=== PATIENT | female | born 1955 | race Caucasian/White ===

== ENCOUNTER 2017-04-03 02:48 | Emergency (ER) | payer MEDICARE, MEDICAID ==
[~2017-04-03] VITALS: Ht 157.5 cm; Wt 52.4 kg
[~2017-04-03 02:48] MED LIST: ALB0.5UD IH; AMIT-189 PO; BOSE125T PO; CLON1TAB4; DEXL60CA3 PO; DIAZ5TAB PO; LIDO700A22 TP; METH4TAB3 PO; METO5TAB85 PO; MONT10TA21 PO; MORP100T21 PO; PER10325T PO; TIOT18CA7 IH; TRIA15CR61 TP
[2017-04-03] MEDS ORDERED: CefTRIAXone 2gm/NS 100ml IVPB 100 ML IV ONE (03:05)
[2017-04-03] MEDS ORDERED: azithromycin/NS 500mg/250ml 250 ML IV ONE (03:05)
[2017-04-03] MEDS ORDERED: albuterol 2.5 MG/3 ML nebule NEB ONE (03:05)
[2017-04-03] MEDS ORDERED: methylPREDNISolone sod succ 125mg/2ml vial IV ONE (03:05)
[2017-04-03 03:28] LABS: BASOPHILS % (AUTO) 0.7 % (0-1); EOSINOPHILS # (AUTO) 0.1 X10'3 (0-0.9); EOSINOPHILS % (AUTO) 1.3 % (0-6); HEMATOCRIT 35.3 % (35.0-45.0); HEMOGLOBIN 12.1 g/dl (12.0-16.0); LYMPHOCYTES # (AUTO) 1.3 X10'3 (1.1-4.8); LYMPHOCYTES % (AUTO) 22.4 % (21-51); MEAN CORPUSCULAR HEMOGLOBIN 32.4 PG (27.0-31.0); MEAN CORPUSCULAR HGB CONC 34.1 % (33.0-36.5); MEAN PLATELET VOLUME 5.9 FL (7.4-10.4); MONOCYTES # (AUTO) 0.7 X10'3 (0-0.9); MONOCYTES % (AUTO) 11.2 % (2-12); NEUTROPHILS # (AUTO) 3.8 X10'3 (1.8-7.7); NEUTROPHILS % (AUTO) 64.4 % (42-75); PLATELET COUNT 207 X10'3 (140-440); RED BLOOD COUNT 3.72 X10'6 (4.20-5.60); RED CELL DISTRIBUTION WIDTH 16.8 % (11.5-14.5); WHITE BLOOD COUNT 5.9 X10'3 (4.5-11.0)
[2017-04-03 03:56] LABS: ALANINE AMINOTRANSFERASE 16 U/L (12-78); ALBUMIN 3.4 G/DL (3.4-5.0); ALBUMIN/GLOBULIN RATIO 0.9 (1.1-1.5); ANION GAP 8 (8-16); ASPARTATE AMINO TRANSFERASE 17 U/L (10-37); BILIRUBIN,TOTAL 0.2 MG/DL (0.1-1.0); BLOOD UREA NITROGEN 5 MG/DL (7-18); BUN/CREATININE RATIO 7.1 (6.6-38.0); CALCIUM 7.8 MG/DL (8.5-10.1); CHLORIDE 102 MMOL/L (99-107); GLUCOSE 102 MG/DL (70-104); MAGNESIUM 1.8 MG/DL (1.5-2.4); PHOSPHORUS 2.9 MG/DL (2.3-4.5); SODIUM 138 MMOL/L (135-145); TOTAL CARBON DIOXIDE 28.4 MMOL/L (24-32); TOTAL PROTEIN 7.4 G/DL (6.4-8.2); eGFR 85 ML/MIN
[2017-04-03 03:59] LABS: ALKALINE PHOSPHATASE 83 IU/L (46-116)
[2017-04-03] MEDS ORDERED: PRED20TA PO (04:54)
[2017-04-03] MEDS ORDERED: AZIT-63 PO (04:54)
[2017-04-03] MEDS ORDERED: GUAI473S11 PO (04:54)
[2017-04-03 05:11] VITALS: BP 99/68
== END 2017-04-03 05:14 | disposition home or self-care (01) ==
LOC: ER 02:48
DX: J44.1 Chronic obstructive pulmonary disease with (acute) exacerbation (principal); J20.9 Acute bronchitis, unspecified; R19.7 Diarrhea, unspecified; E05.90 Thyrotoxicosis, unspecified without thyrotoxic crisis or storm; G89.29 Other chronic pain; K21.9 Gastro-esophageal reflux disease without esophagitis; I27.20 Pulmonary hypertension, unspecified; I10 Essential (primary) hypertension; F41.9 Anxiety disorder, unspecified; M54.9 Dorsalgia, unspecified; F17.210 Nicotine dependence, cigarettes, uncomplicated; Z86.73 Personal history of transient ischemic attack (TIA), and cerebral infarction without residual deficits; Z90.710 Acquired absence of both cervix and uterus; Z98.890 Other specified postprocedural states; Z86.19 Personal history of other infectious and parasitic diseases; Z88.2 Allergy status to sulfonamides; Z88.8 Allergy status to other drugs, medicaments and biological substances
CPT/HCPCS: 36415; 71045; 80053; 83605; 83735; 83880; 84100; 84484; 85025; 87040; 87502; 87503; 93005; 94640; 94760; 96365; 96368; 96375; 99285; J0456; J0696; J2930; 96367

== ENCOUNTER 2017-04-10 15:18 | Emergency (ER) | payer MEDICARE, MEDICAID ==
[~2017-04-10] VITALS: Ht 157.5 cm; Wt 51.0 kg
[~2017-04-10 15:18] MED LIST changes: +AZIT-63 PO; +GUAI473S11 PO; +PRED20TA PO
[2017-04-10] MEDS ORDERED: methylPREDNISolone sod succ 125mg/2ml vial IV ONE (15:30)
[2017-04-10] MEDS ORDERED: ipratropium/albuterol 3ml nebule NEB ONE (15:30)
[2017-04-10 15:59] LABS: BASOPHILS % (AUTO) 0.7 % (0-1); EOSINOPHILS # (AUTO) 0.1 X10'3 (0-0.9); EOSINOPHILS % (AUTO) 1.5 % (0-6); HEMOGLOBIN 12.7 g/dl (12.0-16.0); LYMPHOCYTES # (AUTO) 2.1 X10'3 (1.1-4.8); LYMPHOCYTES % (AUTO) 35.3 % (21-51); MEAN CORPUSCULAR HEMOGLOBIN 33.1 PG (27.0-31.0); MEAN CORPUSCULAR HGB CONC 34.3 % (33.0-36.5); MEAN CORPUSCULAR VOLUME 96.3 FL (78-98); MEAN PLATELET VOLUME 5.6 FL (7.4-10.4); MONOCYTES # (AUTO) 0.5 X10'3 (0-0.9); MONOCYTES % (AUTO) 8.9 % (2-12); NEUTROPHILS # (AUTO) 3.2 X10'3 (1.8-7.7); NEUTROPHILS % (AUTO) 53.6 % (42-75); PLATELET COUNT 300 X10'3 (140-440); RED BLOOD COUNT 3.84 X10'6 (4.20-5.60); RED CELL DISTRIBUTION WIDTH 16.7 % (11.5-14.5)
[2017-04-10 16:24] LABS: ALANINE AMINOTRANSFERASE 23 U/L (12-78); ALBUMIN 3.4 G/DL (3.4-5.0); ALBUMIN/GLOBULIN RATIO 0.9 (1.1-1.5); ALKALINE PHOSPHATASE 82 IU/L (46-116); ANION GAP 7 (8-16); ASPARTATE AMINO TRANSFERASE 23 U/L (10-37); BILIRUBIN,TOTAL 0.2 MG/DL (0.1-1.0); BLOOD UREA NITROGEN 5 MG/DL (7-18); BUN/CREATININE RATIO 7.1 (6.6-38.0); CALCIUM 7.1 MG/DL (8.5-10.1); CHLORIDE 105 MMOL/L (99-107); GLUCOSE 152 MG/DL (70-104); POTASSIUM 4.2 MMOL/L (3.5-5.1); SODIUM 141 MMOL/L (135-145); TOTAL CARBON DIOXIDE 29.5 MMOL/L (24-32); TOTAL PROTEIN 7.3 G/DL (6.4-8.2); eGFR 85 ML/MIN
[2017-04-10] MEDS ORDERED: DOXY-200 PO (16:52)
[2017-04-10] MEDS ORDERED: PRED10TA PO (16:52)
[2017-04-10 17:08] VITALS: BP 104/69
== END 2017-04-10 17:09 | disposition home or self-care (01) ==
LOC: ER 15:19
DX: J44.1 Chronic obstructive pulmonary disease with (acute) exacerbation (principal); I10 Essential (primary) hypertension; I27.20 Pulmonary hypertension, unspecified; K21.9 Gastro-esophageal reflux disease without esophagitis; E05.90 Thyrotoxicosis, unspecified without thyrotoxic crisis or storm; F17.200 Nicotine dependence, unspecified, uncomplicated; G89.29 Other chronic pain; Z86.73 Personal history of transient ischemic attack (TIA), and cerebral infarction without residual deficits; Z98.890 Other specified postprocedural states; Z88.2 Allergy status to sulfonamides; Z88.8 Allergy status to other drugs, medicaments and biological substances; Z79.899 Other long term (current) drug therapy
CPT/HCPCS: 36415; 71045; 80053; 83880; 84484; 85025; 87502; 87503; 93005; 94640; 94760; 96374; 99285; J2930

== ENCOUNTER 2017-06-10 10:11 | Emergency (ER) | payer MEDICARE, MEDICAID ==
[~2017-06-10] VITALS: Ht 149.9 cm; Wt 53.0 kg
[~2017-06-10 10:11] MED LIST changes: -AMIT-189 PO; -AZIT-63 PO; -DIAZ5TAB PO; -GUAI473S11 PO; -LIDO700A22 TP; -METH4TAB3 PO; +PRED10TA PO; -PRED20TA PO; -TRIA15CR61 TP
[2017-06-10 10:49] VITALS: BP 86/59
[2017-06-10 11:14] LABS: BASOPHILS % (AUTO) 0.3 % (0-1); EOSINOPHILS # (AUTO) 0.1 X10'3 (0-0.9); HEMATOCRIT 39.8 % (35.0-45.0); HEMOGLOBIN 13.6 g/dl (12.0-16.0); LYMPHOCYTES # (AUTO) 1.9 X10'3 (1.1-4.8); LYMPHOCYTES % (AUTO) 12.8 % (21-51); MEAN CORPUSCULAR HEMOGLOBIN 32.3 PG (27.0-31.0); MEAN CORPUSCULAR HGB CONC 34.2 % (33.0-36.5); MEAN CORPUSCULAR VOLUME 94.5 FL (78-98); MONOCYTES # (AUTO) 0.8 X10'3 (0-0.9); MONOCYTES % (AUTO) 5.7 % (2-12); NEUTROPHILS # (AUTO) 11.7 X10'3 (1.8-7.7); NEUTROPHILS % (AUTO) 80.2 % (42-75); PLATELET COUNT 222 X10'3 (140-440); RED BLOOD COUNT 4.21 X10'6 (4.20-5.60); WHITE BLOOD COUNT 14.6 X10'3 (4.5-11.0)
[2017-06-10 11:25] LABS: PARTIAL THROMBOPLASTIN TIME 27 SECONDS (22-32)
[2017-06-10 11:32] LABS: ALANINE AMINOTRANSFERASE 18 U/L (12-78); ALBUMIN 3.6 G/DL (3.4-5.0); ALBUMIN/GLOBULIN RATIO 0.8 (1.1-1.5); ALKALINE PHOSPHATASE 60 IU/L (46-116); ANION GAP 8 (8-16); ASPARTATE AMINO TRANSFERASE 17 U/L (10-37); BILIRUBIN,TOTAL 0.5 MG/DL (0.1-1.0); BLOOD UREA NITROGEN 10 MG/DL (7-18); BUN/CREATININE RATIO 13.2 (6.6-38.0); CALCIUM 8.1 MG/DL (8.5-10.1); CHLORIDE 99 MMOL/L (99-107); CREATININE 0.76 MG/DL (0.40-0.90); GLUCOSE 150 MG/DL (70-104); POTASSIUM 4.6 MMOL/L (3.5-5.1); SODIUM 135 MMOL/L (135-145); TOTAL CARBON DIOXIDE 27.6 MMOL/L (24-32); TOTAL PROTEIN 8.1 G/DL (6.4-8.2); eGFR 77 ML/MIN
[2017-06-10] MEDS ORDERED: LEVO500T89 PO (12:36)
[2017-06-10] MEDS ORDERED: GUAI600T45 PO (12:36)
[2017-06-10] MEDS ORDERED: PRED10TA PO (12:36)
== END 2017-06-10 12:54 | disposition home or self-care (01) ==
LOC: ER 10:12
DX: J44.1 Chronic obstructive pulmonary disease with (acute) exacerbation (principal); J20.9 Acute bronchitis, unspecified; J98.4 Other disorders of lung; I10 Essential (primary) hypertension; K21.9 Gastro-esophageal reflux disease without esophagitis; I27.20 Pulmonary hypertension, unspecified; G89.29 Other chronic pain; E05.90 Thyrotoxicosis, unspecified without thyrotoxic crisis or storm; Z90.710 Acquired absence of both cervix and uterus; Z87.891 Personal history of nicotine dependence; Z99.81 Dependence on supplemental oxygen; Z86.73 Personal history of transient ischemic attack (TIA), and cerebral infarction without residual deficits; Z88.2 Allergy status to sulfonamides; Z98.890 Other specified postprocedural states; Z88.6 Allergy status to analgesic agent; Z79.899 Other long term (current) drug therapy
CPT/HCPCS: 36415; 71045; 80053; 84484; 85025; 85610; 85730; 93005; 99285

== ENCOUNTER 2017-06-24 00:41 | Emergency (ER) | payer MEDICARE, MEDICAID ==
[~2017-06-24] VITALS: Ht 157.5 cm; Wt 52.2 kg
[~2017-06-24 00:41] MED LIST changes: +GUAI600T45 PO
[2017-06-24 00:44] VITALS: BP 122/80
[2017-06-24] MEDS ORDERED: ipratropium/albuterol 3ml nebule NEB ONE (01:05)
[2017-06-24] MEDS ORDERED: dexamethasone 4mg tablet PO ONE (01:05)
== END 2017-06-24 02:10 | disposition home or self-care (01) ==
LOC: ER 00:42
DX: J44.1 Chronic obstructive pulmonary disease with (acute) exacerbation (principal); F17.210 Nicotine dependence, cigarettes, uncomplicated; I10 Essential (primary) hypertension; K21.9 Gastro-esophageal reflux disease without esophagitis; I27.20 Pulmonary hypertension, unspecified; E05.90 Thyrotoxicosis, unspecified without thyrotoxic crisis or storm; G89.29 Other chronic pain; Z88.8 Allergy status to other drugs, medicaments and biological substances; Z79.899 Other long term (current) drug therapy; Z98.890 Other specified postprocedural states
CPT/HCPCS: 71046; 94640; 94760; 99284; J8540; 93005

== ENCOUNTER 2017-11-20 07:17 | Emergency (ER) | payer MEDICARE, MEDICAID ==
[~2017-11-20] VITALS: Ht 502.6 cm; Wt 54.5 kg
[~2017-11-20 07:17] MED LIST changes: +CLON-370; -CLON1TAB4
[2017-11-20] MEDS ORDERED: morphine 10mg/ml inj. IM ONE (07:45)
[2017-11-20] MEDS ORDERED: diazepam 5mg tablet PO ONE (07:45)
[2017-11-20] MEDS ORDERED: ondansetron 4mg rapidly disintigrating tab PO ONE (07:45)
[2017-11-20 09:35] VITALS: BP 105/72
== END 2017-11-20 09:36 | disposition home or self-care (01) ==
LOC: ER 07:17
DX: M54.5 Low back pain (principal); G89.29 Other chronic pain; I10 Essential (primary) hypertension; J44.9 Chronic obstructive pulmonary disease, unspecified; I27.20 Pulmonary hypertension, unspecified; K21.9 Gastro-esophageal reflux disease without esophagitis; Z86.19 Personal history of other infectious and parasitic diseases; Z90.710 Acquired absence of both cervix and uterus; Z98.890 Other specified postprocedural states; Z88.6 Allergy status to analgesic agent; Z88.2 Allergy status to sulfonamides; Z88.8 Allergy status to other drugs, medicaments and biological substances; Z79.899 Other long term (current) drug therapy
CPT/HCPCS: 96372; 99284; J2270

== ENCOUNTER 2017-11-24 11:06 | Emergency (ER) | payer MEDICARE, MEDICAID ==
[~2017-11-24] VITALS: Ht 162.6 cm; Wt 54.5 kg
[2017-11-24] MEDS ORDERED: clonazePAM 1mg tablet PO ONE (11:25)
[2017-11-24] MEDS ORDERED: GABA-532 PO (12:16)
[2017-11-24 12:53] VITALS: BP 137/81
== END 2017-11-24 12:55 | disposition home or self-care (01) ==
LOC: ER 11:06
DX: F41.9 Anxiety disorder, unspecified (principal); F13.239 Sedative, hypnotic or anxiolytic dependence with withdrawal, unspecified; I10 Essential (primary) hypertension; J44.9 Chronic obstructive pulmonary disease, unspecified; I27.20 Pulmonary hypertension, unspecified; K21.9 Gastro-esophageal reflux disease without esophagitis; G89.29 Other chronic pain; Z86.73 Personal history of transient ischemic attack (TIA), and cerebral infarction without residual deficits; Z86.19 Personal history of other infectious and parasitic diseases; Z90.710 Acquired absence of both cervix and uterus; Z98.890 Other specified postprocedural states; Z88.6 Allergy status to analgesic agent; Z88.2 Allergy status to sulfonamides; Z88.8 Allergy status to other drugs, medicaments and biological substances; Z79.899 Other long term (current) drug therapy
CPT/HCPCS: 93005; 99284

== ENCOUNTER 2017-12-14 02:47 | Emergency (ER) | payer MEDICARE, MEDICAID ==
[~2017-12-14] VITALS: Ht 162.6 cm; Wt 54.5 kg
[~2017-12-14 02:47] MED LIST changes: +GABA-532 PO
[2017-12-14] MEDS ORDERED: clonazePAM 1mg tablet PO ONE (03:30)
[2017-12-14 03:55] VITALS: BP 112/77
== END 2017-12-14 03:58 | disposition home or self-care (01) ==
LOC: ER 02:48
DX: F41.9 Anxiety disorder, unspecified (principal); G89.29 Other chronic pain; I10 Essential (primary) hypertension; J44.9 Chronic obstructive pulmonary disease, unspecified; K21.9 Gastro-esophageal reflux disease without esophagitis; E03.9 Hypothyroidism, unspecified; Z86.73 Personal history of transient ischemic attack (TIA), and cerebral infarction without residual deficits; Z90.710 Acquired absence of both cervix and uterus; Z88.6 Allergy status to analgesic agent; Z88.2 Allergy status to sulfonamides; Z88.8 Allergy status to other drugs, medicaments and biological substances; Z79.899 Other long term (current) drug therapy
CPT/HCPCS: 99284

== ENCOUNTER 2017-12-17 07:13 | Emergency (ER) | payer MEDICARE, MEDICAID ==
[~2017-12-17] VITALS: Ht 162.6 cm; Wt 54.5 kg
[2017-12-17] MEDS ORDERED: clonazePAM 1mg tablet PO ONE (07:35)
[2017-12-17 07:55] VITALS: BP 112/65
== END 2017-12-17 07:57 | disposition home or self-care (01) ==
LOC: ER 07:14
DX: F41.9 Anxiety disorder, unspecified (principal); I10 Essential (primary) hypertension; K21.9 Gastro-esophageal reflux disease without esophagitis; E05.90 Thyrotoxicosis, unspecified without thyrotoxic crisis or storm; G89.29 Other chronic pain; J44.9 Chronic obstructive pulmonary disease, unspecified; Z86.73 Personal history of transient ischemic attack (TIA), and cerebral infarction without residual deficits; Z90.710 Acquired absence of both cervix and uterus; Z98.890 Other specified postprocedural states; Z88.6 Allergy status to analgesic agent; Z88.8 Allergy status to other drugs, medicaments and biological substances; Z88.2 Allergy status to sulfonamides; Z79.899 Other long term (current) drug therapy
CPT/HCPCS: 99284

== ENCOUNTER 2017-12-28 21:04 | Emergency (ER) | payer MEDICARE, MEDICAID ==
[~2017-12-28] VITALS: Ht 162.6 cm; Wt 54.5 kg
[2017-12-28 21:11] VITALS: BP 81/56
[2017-12-28] MEDS ORDERED: orphenadrine citrate 60mg/2ml inj. IM ONE (23:00)
[2017-12-28] MEDS ORDERED: morphine 4 MG/ML inj SYRINge IM ONE (23:00)
[2017-12-28] MEDS ORDERED: acetaminophen 325mg tablet PO ONE (23:00)
[2017-12-28] MEDS ORDERED: LIDOcaine 5% patch TP ONE (23:00)
[2017-12-28] MEDS ORDERED: BUPIVAcaine/PF 2.5 mg/ml (0.25%) 30ml vial IJ ONE (23:00)
[2017-12-28] MEDS ORDERED: BUPIVAcaine/PF 2.5mg/ml (0.25%) 10ml vial IJ SCH (23:20)
[2017-12-28] MEDS ORDERED: HYDR-3965 PO (23:30)
== END 2017-12-28 23:51 | disposition home or self-care (01) ==
LOC: ER 21:04
DX: G89.29 Other chronic pain (principal); M54.9 Dorsalgia, unspecified; I10 Essential (primary) hypertension; J44.9 Chronic obstructive pulmonary disease, unspecified; I27.20 Pulmonary hypertension, unspecified; K21.9 Gastro-esophageal reflux disease without esophagitis; Z90.710 Acquired absence of both cervix and uterus; Z98.890 Other specified postprocedural states; Z88.2 Allergy status to sulfonamides; Z88.8 Allergy status to other drugs, medicaments and biological substances; Z79.899 Other long term (current) drug therapy
CPT/HCPCS: 96372; 99284; J2270; J2360; J3490

== ENCOUNTER 2018-01-02 11:25 | Emergency (ER) | payer MEDICARE, MEDICAID ==
[~2018-01-02] VITALS: Ht 162.6 cm; Wt 47.0 kg
[~2018-01-02 11:25] MED LIST changes: +HYDR-3965 PO
[2018-01-02 11:40] VITALS: BP 124/81
[2018-01-02] MEDS ORDERED: clonazePAM 1mg tablet PO ONE (13:30)
== END 2018-01-02 14:05 | disposition home or self-care (01) ==
LOC: ER 11:26
DX: F41.9 Anxiety disorder, unspecified (principal); I10 Essential (primary) hypertension; J44.9 Chronic obstructive pulmonary disease, unspecified; K21.9 Gastro-esophageal reflux disease without esophagitis; G89.29 Other chronic pain; E05.90 Thyrotoxicosis, unspecified without thyrotoxic crisis or storm; Z90.710 Acquired absence of both cervix and uterus; Z98.890 Other specified postprocedural states; Z86.73 Personal history of transient ischemic attack (TIA), and cerebral infarction without residual deficits; Z88.6 Allergy status to analgesic agent; Z88.8 Allergy status to other drugs, medicaments and biological substances; Z88.2 Allergy status to sulfonamides; Z79.899 Other long term (current) drug therapy
CPT/HCPCS: 99284

== ENCOUNTER 2018-01-12 09:38 | Emergency (ER) | payer MEDICARE, MEDICAID ==
[~2018-01-12] VITALS: Ht 162.6 cm; Wt 46.3 kg
[2018-01-12 09:43] VITALS: BP 127/88
[2018-01-12] MEDS ORDERED: clonazePAM 1mg tablet PO ONE (10:05)
== END 2018-01-12 10:20 | disposition home or self-care (01) ==
LOC: ER 09:38
DX: F41.9 Anxiety disorder, unspecified (principal); R06.02 Shortness of breath; I10 Essential (primary) hypertension; J44.9 Chronic obstructive pulmonary disease, unspecified; K21.9 Gastro-esophageal reflux disease without esophagitis; G89.29 Other chronic pain; E05.90 Thyrotoxicosis, unspecified without thyrotoxic crisis or storm; Z88.6 Allergy status to analgesic agent; Z88.2 Allergy status to sulfonamides; Z88.8 Allergy status to other drugs, medicaments and biological substances; Z79.899 Other long term (current) drug therapy; Z86.73 Personal history of transient ischemic attack (TIA), and cerebral infarction without residual deficits; Z86.718 Personal history of other venous thrombosis and embolism; Z90.49 Acquired absence of other specified parts of digestive tract; Z90.710 Acquired absence of both cervix and uterus
CPT/HCPCS: 99284

== ENCOUNTER 2018-01-15 10:24 | Emergency (ER) | payer MEDICARE, MEDICAID ==
[~2018-01-15] VITALS: Ht 162.6 cm; Wt 57.0 kg
[2018-01-15 10:25] VITALS: BP 128/92
[2018-01-15] MEDS ORDERED: clonazePAM 1mg tablet PO ONE (11:25)
== END 2018-01-15 11:36 | disposition home or self-care (01) ==
LOC: ER 10:24
DX: F41.9 Anxiety disorder, unspecified (principal); I10 Essential (primary) hypertension; J44.9 Chronic obstructive pulmonary disease, unspecified; K21.9 Gastro-esophageal reflux disease without esophagitis; E05.90 Thyrotoxicosis, unspecified without thyrotoxic crisis or storm; I27.20 Pulmonary hypertension, unspecified; G89.29 Other chronic pain; Z88.6 Allergy status to analgesic agent; Z88.8 Allergy status to other drugs, medicaments and biological substances; Z88.2 Allergy status to sulfonamides; Z79.899 Other long term (current) drug therapy; Z86.73 Personal history of transient ischemic attack (TIA), and cerebral infarction without residual deficits; Z86.718 Personal history of other venous thrombosis and embolism; Z90.710 Acquired absence of both cervix and uterus; Z98.890 Other specified postprocedural states
CPT/HCPCS: 99284

== ENCOUNTER 2018-01-21 16:18 | Emergency (ER) | payer MEDICARE, MEDICAID ==
[~2018-01-21] VITALS: Ht 162.6 cm; Wt 57.3 kg
[2018-01-21] MEDS ORDERED: clonazePAM 1mg tablet PO ONE (18:30)
[2018-01-21 18:41] VITALS: BP 135/86
== END 2018-01-21 18:42 | disposition home or self-care (01) ==
LOC: ER 16:19
DX: F41.9 Anxiety disorder, unspecified (principal); I10 Essential (primary) hypertension; J44.9 Chronic obstructive pulmonary disease, unspecified; I27.20 Pulmonary hypertension, unspecified; K21.9 Gastro-esophageal reflux disease without esophagitis; B19.20 Unspecified viral hepatitis C without hepatic coma; E05.90 Thyrotoxicosis, unspecified without thyrotoxic crisis or storm; G89.29 Other chronic pain; Z90.710 Acquired absence of both cervix and uterus; Z98.890 Other specified postprocedural states; Z88.2 Allergy status to sulfonamides; Z88.8 Allergy status to other drugs, medicaments and biological substances; Z79.899 Other long term (current) drug therapy; Z86.73 Personal history of transient ischemic attack (TIA), and cerebral infarction without residual deficits
CPT/HCPCS: 99284

== ENCOUNTER 2018-02-06 19:04 | Emergency (ER) | payer MEDICARE, MEDICAID ==
[~2018-02-06] VITALS: Ht 162.6 cm; Wt 58.4 kg
[~2018-02-06 19:04] MED LIST changes: -HYDR-3965 PO
[2018-02-06] MEDS ORDERED: clonazePAM 1mg tablet PO ONE (21:00)
[2018-02-06 21:13] VITALS: BP 122/83
== END 2018-02-06 21:15 | disposition home or self-care (01) ==
LOC: ER 19:05
DX: F41.0 Panic disorder [episodic paroxysmal anxiety] (principal); I10 Essential (primary) hypertension; J44.9 Chronic obstructive pulmonary disease, unspecified; K21.9 Gastro-esophageal reflux disease without esophagitis; G89.29 Other chronic pain; E05.90 Thyrotoxicosis, unspecified without thyrotoxic crisis or storm; Z86.73 Personal history of transient ischemic attack (TIA), and cerebral infarction without residual deficits; Z90.710 Acquired absence of both cervix and uterus; Z98.890 Other specified postprocedural states; Z88.6 Allergy status to analgesic agent; Z88.8 Allergy status to other drugs, medicaments and biological substances; Z88.2 Allergy status to sulfonamides; Z79.899 Other long term (current) drug therapy
CPT/HCPCS: 99284

== ENCOUNTER 2018-02-19 15:17 | Emergency (ER) | payer MEDICARE, MEDICAID ==
[~2018-02-19] VITALS: Ht 162.6 cm; Wt 54.0 kg
[2018-02-19 16:01] VITALS: BP 114/77
[2018-02-19] MEDS ORDERED: clonazePAM 1mg tablet PO ONE (17:45)
== END 2018-02-19 18:04 | disposition home or self-care (01) ==
LOC: ER 15:17
DX: F41.9 Anxiety disorder, unspecified (principal); I10 Essential (primary) hypertension; J44.9 Chronic obstructive pulmonary disease, unspecified; K21.9 Gastro-esophageal reflux disease without esophagitis; E05.90 Thyrotoxicosis, unspecified without thyrotoxic crisis or storm; G89.29 Other chronic pain; Z98.890 Other specified postprocedural states; Z90.710 Acquired absence of both cervix and uterus; Z86.73 Personal history of transient ischemic attack (TIA), and cerebral infarction without residual deficits; Z88.6 Allergy status to analgesic agent; Z88.8 Allergy status to other drugs, medicaments and biological substances; Z88.2 Allergy status to sulfonamides; Z79.899 Other long term (current) drug therapy
CPT/HCPCS: 99284

== ENCOUNTER 2018-03-09 19:39 | Emergency (ER) | payer MEDICARE, MEDICAID ==
[~2018-03-09] VITALS: Ht 162.6 cm; Wt 53.2 kg
[2018-03-09 19:53] VITALS: BP 103/73
[2018-03-09] MEDS ORDERED: meclizine 12.5mg tablet PO ONE (20:40)
[2018-03-09] MEDS ORDERED: ROBDML PO (20:42)
[2018-03-09] MEDS ORDERED: BENZ-16 PO (20:42)
[2018-03-09] MEDS ORDERED: AZIT250T2 PO (20:42)
== END 2018-03-09 21:25 | disposition home or self-care (01) ==
LOC: ER 19:40
DX: J20.9 Acute bronchitis, unspecified (principal); R42 Dizziness and giddiness; J44.9 Chronic obstructive pulmonary disease, unspecified; K21.9 Gastro-esophageal reflux disease without esophagitis; I27.20 Pulmonary hypertension, unspecified; G89.29 Other chronic pain; Z86.73 Personal history of transient ischemic attack (TIA), and cerebral infarction without residual deficits; E05.90 Thyrotoxicosis, unspecified without thyrotoxic crisis or storm; Z90.710 Acquired absence of both cervix and uterus; Z98.890 Other specified postprocedural states; Z88.2 Allergy status to sulfonamides; Z88.8 Allergy status to other drugs, medicaments and biological substances; Z79.899 Other long term (current) drug therapy; Z99.81 Dependence on supplemental oxygen
CPT/HCPCS: 99283; J8597

== ENCOUNTER 2018-05-15 15:14 | Emergency (ER) | payer MEDICARE, MEDICAID ==
[~2018-05-15] VITALS: Ht 162.6 cm; Wt 56.8 kg
[~2018-05-15 15:14] MED LIST changes: +ROBDML PO
--- NOTE | 2018-05-15 16:42 | NUR ---
PATIENT HERE FOR ANXIETY DUE TO CLONOPIN BEING WEANED OFF BY HER PMD: WAS TAKING 1MG BID CLONOPIN LAST DOSE OF CLONOPIN INGESTED WAS 4 DAYS; PT IS NOW OUT OF HER LEFTOVER CLONOPIN; LAST FILLED CLONOPIN "A COUPLE OF MONTHS AGO" PT TAKES MORPHINE CONTIN 30 MG Q 12HOUR PT IS ONLY TAKING HER GABAPENTIN BID INSTEAD OF TID PT TAKES 10 MG FLEXERIL AT BEDTIME PT IS REQUESTING TO BE GIVEN A 1 MG CLONOPIN HERE IN THE ER
--- NOTE | 2018-05-15 16:46 | NUR ---
PATIENT HAS NOT ATTENDED THERAPY/ COUNSELING IN 2 MONTHS
[2018-05-15 16:55] VITALS: BP 120/52
--- NOTE | 2018-05-15 16:57 | NUR ---
PATIENT WAS GIVEN 1 MG CLONOPIN HERE IN THE ER ON MAY 10, 2018 THE LASY SET OF VITALS WAS DOCUMENTED WITH A SMALL ADULT CUFF; TRIAGE BP WAS DONE WITH A REGULAR CUFF; PATIENT IS A SMALL FRAMED WOMAN
== END 2018-05-15 17:10 | disposition home or self-care (01) ==
LOC: ER 15:14
DX: F41.9 Anxiety disorder, unspecified (principal); I10 Essential (primary) hypertension; J44.9 Chronic obstructive pulmonary disease, unspecified; E05.90 Thyrotoxicosis, unspecified without thyrotoxic crisis or storm; G89.29 Other chronic pain; M54.9 Dorsalgia, unspecified; F17.200 Nicotine dependence, unspecified, uncomplicated; Z86.73 Personal history of transient ischemic attack (TIA), and cerebral infarction without residual deficits; Z90.710 Acquired absence of both cervix and uterus; Z88.2 Allergy status to sulfonamides; Z88.8 Allergy status to other drugs, medicaments and biological substances
CPT/HCPCS: 99284

== ENCOUNTER 2018-07-17 16:19 | Emergency (ER) | payer MEDICARE, MEDICAID ==
[~2018-07-17] VITALS: Ht 162.6 cm; Wt 55.0 kg
[2018-07-17 16:38] VITALS: BP 98/62
== END 2018-07-17 17:57 | disposition home or self-care (01) ==
LOC: ER 16:19
DX: M54.5 Low back pain (principal); G89.29 Other chronic pain; M54.6 Pain in thoracic spine; I10 Essential (primary) hypertension; J44.9 Chronic obstructive pulmonary disease, unspecified; K21.9 Gastro-esophageal reflux disease without esophagitis; E05.80 Other thyrotoxicosis without thyrotoxic crisis or storm; F41.9 Anxiety disorder, unspecified; Z86.73 Personal history of transient ischemic attack (TIA), and cerebral infarction without residual deficits; Z90.710 Acquired absence of both cervix and uterus; Z98.890 Other specified postprocedural states; Z88.6 Allergy status to analgesic agent; Z88.8 Allergy status to other drugs, medicaments and biological substances; Z79.899 Other long term (current) drug therapy; Z88.2 Allergy status to sulfonamides
CPT/HCPCS: 99284

== ENCOUNTER 2018-10-19 04:08 | Emergency (ER) | payer MEDICARE, MEDICAID ==
[~2018-10-19] VITALS: Ht 160 cm; Wt 59.1 kg
[2018-10-19 04:10] VITALS: BP 113/70
[2018-10-19] MEDS ORDERED: proparacaine 0.5% ophthalmic drops 15ml EACHEYE ONE (04:10)
[2018-10-19] MEDS ORDERED: VIG0.5OS RIGHTEYE (04:23)
== END 2018-10-19 04:35 | disposition home or self-care (01) ==
LOC: ER 04:09
DX: H10.9 Unspecified conjunctivitis (principal); I10 Essential (primary) hypertension; J44.9 Chronic obstructive pulmonary disease, unspecified; K21.9 Gastro-esophageal reflux disease without esophagitis; E03.9 Hypothyroidism, unspecified; G89.29 Other chronic pain; F17.200 Nicotine dependence, unspecified, uncomplicated; Z86.73 Personal history of transient ischemic attack (TIA), and cerebral infarction without residual deficits; Z86.19 Personal history of other infectious and parasitic diseases; Z90.710 Acquired absence of both cervix and uterus; Z98.890 Other specified postprocedural states; Z88.8 Allergy status to other drugs, medicaments and biological substances; Z88.2 Allergy status to sulfonamides; Z79.899 Other long term (current) drug therapy
CPT/HCPCS: 99283

== ENCOUNTER 2018-12-20 14:43 | Emergency (ER) | payer MEDICARE, MEDICAID ==
[~2018-12-20] VITALS: Ht 152.4 cm; Wt 53.0 kg
[2018-12-20] MEDS ORDERED: clonazePAM 1mg tablet PO ONE (15:05)
[2018-12-20] MEDS ORDERED: ipratropium/albuterol 3ml nebule NEB ONE (15:05)
--- NOTE | 2018-12-20 15:09 | NUR ---
patient to radiology
[2018-12-20 15:21] LABS: BASOPHILS # (AUTO) 0.1 X10'3 (0-0.2); BASOPHILS % (AUTO) 0.7 % (0-1); EOSINOPHILS # (AUTO) 0.1 X10'3 (0-0.9); EOSINOPHILS % (AUTO) 0.9 % (0-6); HEMATOCRIT 41.6 % (35.0-45.0); HEMOGLOBIN 13.8 g/dl (12.0-16.0); LYMPHOCYTES # (AUTO) 2.3 X10'3 (1.1-4.8); LYMPHOCYTES % (AUTO) 32.6 % (21-51); MEAN CORPUSCULAR HEMOGLOBIN 31.3 PG (27.0-31.0); MEAN CORPUSCULAR HGB CONC 33.1 g/dL (33.0-36.5); MEAN CORPUSCULAR VOLUME 94.4 FL (78-98); MEAN PLATELET VOLUME 6.2 FL (7.4-10.4); MONOCYTES # (AUTO) 0.8 X10'3 (0-0.9); MONOCYTES % (AUTO) 10.8 % (2-12); NEUTROPHILS # (AUTO) 3.9 X10'3 (1.8-7.7); PLATELET COUNT 316 X10'3 (140-440); RED BLOOD COUNT 4.41 X10'6 (4.20-5.60); RED CELL DISTRIBUTION WIDTH 17.5 % (11.5-14.5)
[2018-12-20 15:32] LABS: ALANINE AMINOTRANSFERASE 20 U/L (12-78); ALBUMIN 3.7 G/DL (3.4-5.0); ALBUMIN/GLOBULIN RATIO 0.8 (1.1-1.5); ALKALINE PHOSPHATASE 67 IU/L (46-116); ANION GAP 6 (8-16); ASPARTATE AMINO TRANSFERASE 21 U/L (10-37); BILIRUBIN,TOTAL 0.2 MG/DL (0.1-1.0); BLOOD UREA NITROGEN 12 MG/DL (7-18); BUN/CREATININE RATIO 17.4 (6.6-38.0); CALCIUM 9.1 MG/DL (8.5-10.1); CHLORIDE 105 MMOL/L (99-107); CREATININE 0.69 MG/DL (0.40-0.90); GLUCOSE 135 MG/DL (70-104); POTASSIUM 4.1 MMOL/L (3.5-5.1); SODIUM 143 MMOL/L (135-145); TOTAL CARBON DIOXIDE 31.8 MMOL/L (24-32); TOTAL PROTEIN 8.5 G/DL (6.4-8.2); eGFR 85 ML/MIN
[2018-12-20 15:35] LABS: PARTIAL THROMBOPLASTIN TIME 25 SECONDS (22-32)
--- NOTE | 2018-12-20 15:35 | NUR ---
mark at bedside.
--- NOTE | 2018-12-20 15:38 | NUR ---
PATIENT REPORTS "FEELING BETTER" AFTER BREATHING TX.
[2018-12-20] MEDS ORDERED: AZIT-72 PO (15:44)
[2018-12-20] MEDS ORDERED: METH4TAB81 PO (15:44)
[2018-12-20 16:00] VITALS: BP 109/72
== END 2018-12-20 16:09 | disposition home or self-care (01) ==
LOC: ER 14:43
DX: J44.1 Chronic obstructive pulmonary disease with (acute) exacerbation (principal); I10 Essential (primary) hypertension; J44.9 Chronic obstructive pulmonary disease, unspecified; I27.20 Pulmonary hypertension, unspecified; K21.9 Gastro-esophageal reflux disease without esophagitis; E05.90 Thyrotoxicosis, unspecified without thyrotoxic crisis or storm; G89.29 Other chronic pain; F41.9 Anxiety disorder, unspecified; Z90.710 Acquired absence of both cervix and uterus; Z98.890 Other specified postprocedural states; Z88.8 Allergy status to other drugs, medicaments and biological substances; Z88.2 Allergy status to sulfonamides
CPT/HCPCS: 36415; 71046; 80053; 84484; 85025; 85610; 85730; 93005; 94640; 94760; 99284

== ENCOUNTER 2019-02-23 12:12 | Inpatient (IN) | payer MEDICARE, MEDICAID ==
[~2019-02-23] VITALS: Ht 160 cm; Wt 61.0 kg
[~2019-02-23 12:12] MED LIST changes: +METH4TAB81 PO
[2019-02-23] MEDS ORDERED: normal saline 1000ml 1,000 ML IV ONE (12:47)
[2019-02-23] MEDS ORDERED: methylPREDNISolone sod succ 125mg/2ml vial IV ONE (12:50)
[2019-02-23] MEDS ORDERED: azithromycin/NS 500mg/250ml 250 ML IV ONE (12:50)
[2019-02-23] MEDS ORDERED: CefTRIAXone 2gm/D5W 50ml 50 ML IV ONE (12:50)
[2019-02-23 13:29] LABS: BASOPHILS # (AUTO) 0.1 X10'3 (0-0.2); BASOPHILS % (AUTO) 0.7 % (0-1); EOSINOPHILS % (AUTO) 0.2 % (0-6); HEMATOCRIT 37.4 % (35.0-45.0); HEMOGLOBIN 12.3 g/dl (12.0-16.0); LYMPHOCYTES # (AUTO) 1.5 X10'3 (1.1-4.8); LYMPHOCYTES % (AUTO) 19.3 % (21-51); MEAN CORPUSCULAR VOLUME 93.9 FL (78-98); MEAN PLATELET VOLUME 6.3 FL (7.4-10.4); MONOCYTES % (AUTO) 12.4 % (2-12); NEUTROPHILS # (AUTO) 5.4 X10'3 (1.8-7.7); NEUTROPHILS % (AUTO) 67.4 % (42-75); PLATELET COUNT 339 X10'3 (140-440); RED BLOOD COUNT 3.99 X10'6 (4.20-5.60); RED CELL DISTRIBUTION WIDTH 15.8 % (11.5-14.5)
[2019-02-23 13:34] LABS: PARTIAL THROMBOPLASTIN TIME 27 SECONDS (22-32)
[2019-02-23 13:37] LABS: ALANINE AMINOTRANSFERASE 18 U/L (12-78); ALBUMIN 3.1 G/DL (3.4-5.0); ALBUMIN/GLOBULIN RATIO 0.7 (1.1-1.5); ALKALINE PHOSPHATASE 53 IU/L (46-116); ANION GAP 5 (8-16); ASPARTATE AMINO TRANSFERASE 22 U/L (10-37); BILIRUBIN,TOTAL 0.3 MG/DL (0.1-1.0); BLOOD UREA NITROGEN 8 MG/DL (7-18); BUN/CREATININE RATIO 12.1 (6.6-38.0); CALCIUM 8.1 MG/DL (8.5-10.1); CHLORIDE 95 MMOL/L (99-107); CREATININE 0.66 MG/DL (0.40-0.90); GLUCOSE 134 MG/DL (70-104); MAGNESIUM 1.8 MG/DL (1.5-2.4); POTASSIUM 4.2 MMOL/L (3.5-5.1); SODIUM 131 MMOL/L (135-145); TOTAL CARBON DIOXIDE 31.1 MMOL/L (24-32); TOTAL PROTEIN 7.3 G/DL (6.4-8.2); eGFR 90 ML/MIN
[2019-02-23] MEDS ORDERED: albuterol 2.5 MG/3 ML nebule ONE (14:04)
[2019-02-23] MEDS ORDERED: aspirin 81mg tab.chew PO ONE (14:10)
[2019-02-23] MEDS ORDERED: albuterol 2.5 MG/3 ML nebule NEB PRN (14:10)
[2019-02-23] MEDS ORDERED: nitroGLYCERIN 0.2mg/hour patch TD ONE (14:10)
[2019-02-23] MEDS ORDERED: albuterol 2.5 MG/3 ML nebule CONTNEB PRN (14:10)
[2019-02-23] MEDS ORDERED: morphine 2 MG/ML inj. syringe IV PRN ×2 (14:25)
[2019-02-23] MEDS ORDERED: acetaminophen 325mg tablet PO PRN ×2 (14:25)
[2019-02-23] MEDS ORDERED: magnesium hydroxide 30ml (MOM) UD suspension PO PRN (14:25)
[2019-02-23] MEDS ORDERED: magnesium 4gm in 100ml NS 100 ML IV PRN (14:25)
[2019-02-23] MEDS ORDERED: potassium CL 10mEq/100ml bag 100 ML IV PRN ×2 (14:25)
[2019-02-23] MEDS ORDERED: mag hydrox/Alum hydrox/simeth 30ml oral suspension PO PRN (14:25)
[2019-02-23] MEDS ORDERED: magnesium 2GM in 50ml NS 50 ML IV PRN (14:25)
[2019-02-23] MEDS ORDERED: ipratropium/albuterol 3ml nebule NEB PRN (14:25)
[2019-02-23] MEDS ORDERED: potassium Cl 20 mEq SR tablet PO PRN ×2 (14:25)
[2019-02-23] MEDS ORDERED: ondansetron/PF 4mg/2ml inj IV PRN (14:25)
[2019-02-23] MEDS ORDERED: magnesium Cl slow-release 64mg tablet PO PRN (14:25)
[2019-02-23] MEDS ORDERED: enoxaparin 100mg/ml syringe SUBCUT ONE (14:30)
[2019-02-23] MEDS ORDERED: nitroGLYCERIN 0.4mg SUBLingual tab SL PRN (14:40)
[2019-02-23] MEDS ORDERED: TIOT4MIS2 INH (14:51)
[2019-02-23] MEDS ORDERED: [UNRECOGNIZED DRUG - CODE] PO (14:51)
[2019-02-23] MEDS ORDERED: BUPR1TAB36 SL (14:51)
[2019-02-23] MEDS ORDERED: ALBU17AE26 INH (14:51)
[2019-02-23] MEDS ORDERED: LEVO88TA39 PO (14:51)
[2019-02-23] MEDS ORDERED: BUDE10.22 INH (14:51)
[2019-02-23] MEDS ORDERED: LINA145C PO (14:51)
[2019-02-23] MEDS ORDERED: METO10TA3 PO (14:51)
[2019-02-23] MEDS ORDERED: POTA10TA PO (14:51)
[2019-02-23] MEDS ORDERED: MONT10TA24 PO (14:51)
[2019-02-23] MEDS ORDERED: DEXL60CA3 PO (14:51)
[2019-02-23] MEDS: methylPREDNISolone sod succ 125mg/2ml vial IV SCH (15:05)
--- NOTE | 2019-02-23 16:20 | NUR ---
Pt arrived on unit via wheelchair by ARLEEN Khan. Pt on mobile monitor. RT present to initiate CPAP. Pt oriented room and call light. VS: 121/76, HR 94, O2 - 91% 3L NC, RR 14.
[2019-02-23 16:30] VITALS: BP 121/76
--- NOTE | 2019-02-23 17:56 | NUR ---
Orientee documentation: I have reviewed and agree with all interventions, assessments performed and documented by ARLEEN Yee. Student Medication Administration: For this medication-pass time frame, all medication were reviewed, dispensed, administered and documented per hospital policy by ARLEEN Yee.
--- NOTE | 2019-02-23 18:20 | NUR ---
Problems reprioritized. Patient report given, questions answered & plan of care reviewed with ARLEEN Ruffin. Patient stable at transfer of care.
--- NOTE | 2019-02-23 18:21 | NUR ---
Problems reprioritized. Patient report given, questions answered & plan of care reviewed with Kemal Lindo.
[2019-02-23 19:00] VITALS: BP 91/70
[2019-02-23] MEDS: K and/or MAG REPLACEMENT MC SCH (20:00)
[2019-02-23] MEDS: BOSENTAN PO SCH (20:00)
[2019-02-23] MEDS: LINACLOTIDE PO SCH (20:00)
[2019-02-23] MEDS: ipratropium/albuterol 3ml nebule NEB SCH (20:11)
[2019-02-23] MEDS: metoclopramide 10mg tablet PO SCH (21:24)
[2019-02-23 22:38] VITALS: BP 88/64
[2019-02-23] MEDS: buprenorphine/naloxone 8mg/2mg SL tablet SL SCH (23:36)
[2019-02-24] MEDS: methylPREDNISolone sod succ 125mg/2ml vial IV SCH ×2 (01:00→08:34)
[2019-02-24 01:54] LABS: CHLORIDE 102 MMOL/L (99-107); GLUCOSE 103 MG/DL (70-104); POTASSIUM 4.3 MMOL/L (3.5-5.1); SODIUM 138 MMOL/L (135-145); TOTAL CARBON DIOXIDE 32.4 MMOL/L (24-32)
[2019-02-24 01:55] LABS: ALBUMIN 2.8 G/DL (3.4-5.0); ANION GAP 4 (8-16); BLOOD UREA NITROGEN 5 MG/DL (7-18); BUN/CREATININE RATIO 8.6 (6.6-38.0); CALCIUM 7.6 MG/DL (8.5-10.1); CHOL/HDL RATIO 3.1 (0.00-4.99); CHOLESTEROL 173 MG/DL (0-200); CREATININE 0.58 MG/DL (0.40-0.90); HDL CHOLESTEROL 56 MG/DL (35-60); LDL CHOLESTEROL 100 MG/DL (50-100); TRIGLYCERIDES 74 MG/DL (20-135); eGFR > 90 ML/MIN
[2019-02-24 03:00] VITALS: BP 83/54
[2019-02-24 05:34] LABS: BASOPHILS % (AUTO) 0.4 % (0-1); EOSINOPHILS % (AUTO) 0 % (0-6); HEMATOCRIT 34.2 % (35.0-45.0); HEMOGLOBIN 11.5 g/dl (12.0-16.0); LYMPHOCYTES # (AUTO) 0.8 X10'3 (1.1-4.8); LYMPHOCYTES % (AUTO) 22.3 % (21-51); MEAN CORPUSCULAR HEMOGLOBIN 31.1 PG (27.0-31.0); MEAN CORPUSCULAR HGB CONC 33.5 g/dL (33.0-36.5); MEAN CORPUSCULAR VOLUME 92.8 FL (78-98); MEAN PLATELET VOLUME 6.2 FL (7.4-10.4); MONOCYTES # (AUTO) 0.2 X10'3 (0-0.9); MONOCYTES % (AUTO) 6.5 % (2-12); NEUTROPHILS # (AUTO) 2.6 X10'3 (1.8-7.7); NEUTROPHILS % (AUTO) 70.8 % (42-75); PLATELET COUNT 305 X10'3 (140-440); RED BLOOD COUNT 3.69 X10'6 (4.20-5.60); RED CELL DISTRIBUTION WIDTH 16.1 % (11.5-14.5); WHITE BLOOD COUNT 3.7 X10'3 (4.5-11.0)
--- NOTE | 2019-02-24 06:00 | NUR ---
Problems reprioritized. Patient report given, questions answered & plan of care reviewed with Larissa BACON and Nakia BACON .
--- NOTE | 2019-02-24 06:35 | NUR ---
Patient in room PCU 3020. I have received report from ARLEEN Lindo and had the opportunity to ask questions and assume patient care.
--- NOTE | 2019-02-24 06:37 | NUR ---
Patient in room PCU 3020. I have received report from ARLEEN Lindo and had the opportunity to ask questions and assume patient care. Patient asleep in bed and resting comfortably. In no acute distress.
[2019-02-24 07:00] VITALS: BP 90/67
[2019-02-24] MEDS: K and/or MAG REPLACEMENT MC SCH ×2 (07:01→20:00)
[2019-02-24] MEDS: ipratropium/albuterol 3ml nebule NEB SCH ×4 (07:37→20:09)
[2019-02-24] MEDS: LINACLOTIDE PO SCH ×2 (08:00→20:00)
[2019-02-24] MEDS: BOSENTAN PO SCH ×2 (08:00→20:00)
[2019-02-24] MEDS: pantoprazole 40mg Tablet.DR PO SCH (08:33)
[2019-02-24] MEDS: azithromycin 250mg tablet PO SCH (08:33)
[2019-02-24] MEDS: metoclopramide 10mg tablet PO SCH ×4 (08:34→23:17)
[2019-02-24] MEDS: nicotine 21mg patch - 24 hr TD SCH (08:34)
[2019-02-24] MEDS: montelukast 10mg tablet PO SCH (08:34)
[2019-02-24] MEDS: levoTHYROXINE 88mcg tablet PO SCH (08:34)
[2019-02-24] MEDS: potassium chloride 10mEq ER tablet PO SCH (08:34)
[2019-02-24] MEDS: CefTRIAXone 2gm/D5W 50ml 50 ML IV SCH (08:35)
[2019-02-24] MEDS: buprenorphine/naloxone 8mg/2mg SL tablet SL SCH (08:39)
[2019-02-24] MEDS ORDERED: methylPREDNISolone sod succ 125mg/2ml vial IV SCH (08:53)
[2019-02-24] MEDS ORDERED: methylPREDNISolone sod succ/PF 40mg inj. IV SCH (08:53)
[2019-02-24 11:00] VITALS: BP 120/84
--- NOTE | 2019-02-24 12:23 | NUR ---
New orders for from [facility] for PT eval, discontinue solumerol, and to add an order for 40mg prednisone.
[2019-02-24] MEDS: buprenorphine/naloxone 8MG-2MG SUBlingual film SL SCH ×2 (14:59→22:00)
[2019-02-24 15:00] VITALS: BP 102/70
[2019-02-24 18:00] VITALS: BP 86/65
--- NOTE | 2019-02-24 18:06 | NUR ---
Orientee documentation: I have reviewed and agree with all interventions, assessments performed and documented by ARLEEN Yee. Student Medication Administration: For this medication-pass time frame, all medication were reviewed, dispensed, administered and documented per hospital policy by Nakia BACON.
--- NOTE | 2019-02-24 18:21 | NUR ---
Problems reprioritized. Patient report given, questions answered & plan of care reviewed with Belgica BACON. Patient stable at transfer of care.
--- NOTE | 2019-02-24 18:22 | NUR ---
Problems reprioritized. Patient report given, questions answered & plan of care reviewed with ARLEEN Lindo.
[2019-02-24 22:00] VITALS: BP 84/62
[2019-02-25 02:00] VITALS: BP 100/86
[2019-02-25 06:00] VITALS: BP 99/73
--- NOTE | 2019-02-25 06:17 | NUR ---
Patient in room PCU 3020. I have received report from ARLEEN Lindo and had the opportunity to ask questions and assume patient care.
--- NOTE | 2019-02-25 06:41 | NUR ---
Problems reprioritized. Patient report given, questions answered & plan of care reviewed with Teodora BACON.
[2019-02-25 06:52] LABS: BASOPHILS # (AUTO) 0.1 X10'3 (0-0.2); BASOPHILS % (AUTO) 0.8 % (0-1); EOSINOPHILS % (AUTO) 0.5 % (0-6); HEMOGLOBIN 12.2 g/dl (12.0-16.0); LYMPHOCYTES # (AUTO) 2.7 X10'3 (1.1-4.8); LYMPHOCYTES % (AUTO) 33.1 % (21-51); MEAN CORPUSCULAR HEMOGLOBIN 30.5 PG (27.0-31.0); MEAN CORPUSCULAR HGB CONC 32.2 g/dL (33.0-36.5); MEAN CORPUSCULAR VOLUME 94.6 FL (78-98); MEAN PLATELET VOLUME 6.5 FL (7.4-10.4); MONOCYTES # (AUTO) 1.1 X10'3 (0-0.9); MONOCYTES % (AUTO) 13.5 % (2-12); NEUTROPHILS # (AUTO) 4.2 X10'3 (1.8-7.7); NEUTROPHILS % (AUTO) 52.1 % (42-75); PLATELET COUNT 367 X10'3 (140-440); RED BLOOD COUNT 4.02 X10'6 (4.20-5.60); RED CELL DISTRIBUTION WIDTH 16.2 % (11.5-14.5)
[2019-02-25 06:57] LABS: ALBUMIN 2.8 G/DL (3.4-5.0); ANION GAP -2 (8-16); BLOOD UREA NITROGEN 18 MG/DL (7-18); CALCIUM 8.1 MG/DL (8.5-10.1); CHLORIDE 104 MMOL/L (99-107); CREATININE 0.75 MG/DL (0.40-0.90); GLUCOSE 79 MG/DL (70-104); MAGNESIUM 2.2 MG/DL (1.5-2.4); POTASSIUM 4.4 MMOL/L (3.5-5.1); SODIUM 140 MMOL/L (135-145); TOTAL CARBON DIOXIDE 38.4 MMOL/L (24-32); eGFR 78 ML/MIN
[2019-02-25] MEDS: ipratropium/albuterol 3ml nebule NEB SCH ×3 (07:02→14:46)
[2019-02-25] MEDS: azithromycin 250mg tablet PO SCH (07:21)
[2019-02-25] MEDS: buprenorphine/naloxone 8MG-2MG SUBlingual film SL SCH ×2 (07:21→12:23)
[2019-02-25] MEDS: metoclopramide 10mg tablet PO SCH ×3 (07:21→16:48)
[2019-02-25] MEDS: potassium chloride 10mEq ER tablet PO SCH (07:21)
[2019-02-25] MEDS: nicotine 21mg patch - 24 hr TD SCH (07:21)
[2019-02-25] MEDS: levoTHYROXINE 88mcg tablet PO SCH (07:21)
[2019-02-25] MEDS: pantoprazole 40mg Tablet.DR PO SCH (07:22)
[2019-02-25] MEDS: CefTRIAXone 2gm/D5W 50ml 50 ML IV SCH (07:22)
[2019-02-25] MEDS: montelukast 10mg tablet PO SCH (07:23)
[2019-02-25] MEDS: HYDROcodone/acetaminophen 5mg/325mg tablet PO PRN ×2 (07:42→16:48)
[2019-02-25] MEDS: BOSENTAN PO SCH (08:00)
[2019-02-25] MEDS: LINACLOTIDE PO SCH (08:00)
[2019-02-25] MEDS: K and/or MAG REPLACEMENT MC SCH (08:00)
[2019-02-25] MEDS ORDERED: predniSONE 20 mg tablet PO SCH (08:00)
[2019-02-25 10:31] LABS: ABG BASE EXCESS 9.8 mmol/L (-2.0-3.0); ABG HCO3 37.8 mmol/L (22.0-26.0); ABG OXYGEN SATURATION 90.5 % (95-98); ABG PCO2 (T) 67.9 mmHg (35.0-45.0); ABG PH (T) 7.363 (7.350-7.450); ABG PO2 (T) 60.2 mmHg (83-108); ALLEN'S TEST Positive; FCOHb 2.3 % (0.5-1.5); FLOW 5 L/min; FMetHb 0.3 % (0.3-1.12); FO2Hb 88.1 % (94-100); TOTAL HEMOGLOBIN 12.8 G/dl (12.0-16.0)
--- NOTE | 2019-02-25 10:42 | NUR ---
[id number] MESSAGE: Lisa Kiser Rm [id number] has had ABG resulted. Please review for poss d/c home today.
[2019-02-25 11:00] VITALS: BP 81/63
[2019-02-25 15:00] VITALS: BP 85/67
[2019-02-25] MEDS ORDERED: IPRA3AMP9 NEB (16:12)
[2019-02-25] MEDS ORDERED: AZI25OT PO (16:12)
[2019-02-25] MEDS ORDERED: NICO-687 TD (16:12)
--- NOTE | 2019-02-25 16:28 | NUR ---
[id number] MESSAGE: Lisa Kiser Rm [id number] should she go home with prednisone? ARLEEN Hollins ext [phone]
[2019-02-25] MEDS ORDERED: PRED10TA23 PO (16:36)
[2019-02-25] MEDS ORDERED: lactobacillus rhamnosus 10,000 MMU CELLS/CAPSULE PO SCH (20:00)
--- NOTE | 2019-02-26 13:16 | NUR ---
Spoke with the patient on the telephone and have been informed that her medications were not called into the pharmacy upon discharge. Patients meds have been called into [facility] on [address] [facility] in [facility] as requested by patient. Patient has been informed to wait approximately one hour and then call the pharmacy to inquire about the medication status.
== END 2019-02-25 17:44 | disposition home or self-care (01) | DRG 189 ==
LOC: ER 12:12 → ED HOLD 14:38 → PCU 3S 16:20
PROVIDERS: ADMIT Hospitalist; ATTEND Hospitalist
PROC: 5A09357 Assistance with Respiratory Ventilation, Less than 24 Consecutive Hours, Continuous Positive Airway Pressure (ICD-10-PCS; principal; 2019-02-23)
DX: J96.20 Acute and chronic respiratory failure, unspecified whether with hypoxia or hypercapnia (principal); J44.1 Chronic obstructive pulmonary disease with (acute) exacerbation; R64 Cachexia; E03.9 Hypothyroidism, unspecified; F17.210 Nicotine dependence, cigarettes, uncomplicated; I10 Essential (primary) hypertension; I27.20 Pulmonary hypertension, unspecified; K21.9 Gastro-esophageal reflux disease without esophagitis; B19.20 Unspecified viral hepatitis C without hepatic coma; G89.29 Other chronic pain; M54.9 Dorsalgia, unspecified; F41.9 Anxiety disorder, unspecified; Z90.710 Acquired absence of both cervix and uterus; Z87.01 Personal history of pneumonia (recurrent); Z86.73 Personal history of transient ischemic attack (TIA), and cerebral infarction without residual deficits; Z88.8 Allergy status to other drugs, medicaments and biological substances; Z88.2 Allergy status to sulfonamides
CPT/HCPCS: 36415; 36600; 71045; 80048; 80053; 80061; 82803; 83605; 83735; 83880; 84484; 85018; 85025; 85610; 85730; 87040; 87502; 87503; 93005; 93306; 94640; 94660; 94760; 96365; 96368; 96372; 96375; 99291; G0378; J0456; J0696; J1650; J2920; J2930; J7512; J8597

== ENCOUNTER 2019-11-20 21:20 | Inpatient (IN) | payer BC, MEDICAID ==
[~2019-11-20] VITALS: Ht 162.6 cm; Wt 59.1 kg
[~2019-11-20 21:20] MED LIST changes: -ALB0.5UD IH; +ALBU17AE26 INH; -BOSE125T PO; +BUDE10.22 INH; +BUPR1TAB45 SL; -CLON-370; -GABA-532 PO; -GUAI600T45 PO; +LEVO88TA39 PO; +LINA145C PO; -METH4TAB81 PO; +METO10TA3 PO; -METO5TAB85 PO; -MONT10TA21 PO; +MONT10TA26 PO; -MORP100T21 PO; -PER10325T PO; +POTA10TA PO; -PRED10TA PO; -ROBDML PO; -TIOT18CA7 IH; +TIOT4MIS2 INH
[2019-11-20] MEDS ORDERED: ipratropium/albuterol 3ml nebule NEB ONE (21:25)
[2019-11-20] MEDS ORDERED: methylPREDNISolone sod succ 125mg/2ml vial IV ONE (21:25)
[2019-11-20 22:01] LABS: BASOPHILS # (AUTO) 0.1 X10'3 (0-0.2); BASOPHILS % (AUTO) 0.3 % (0-1); EOSINOPHILS % (AUTO) 0.1 % (0-6); HEMATOCRIT 43.3 % (35.0-45.0); HEMOGLOBIN 13.9 g/dl (12.0-16.0); LYMPHOCYTES # (AUTO) 1.3 X10'3 (1.1-4.8); LYMPHOCYTES % (AUTO) 6.9 % (21-51); MEAN CORPUSCULAR HEMOGLOBIN 27.8 PG (27.0-31.0); MEAN CORPUSCULAR HGB CONC 32.1 g/dL (33.0-36.5); MEAN CORPUSCULAR VOLUME 86.6 FL (78-98); MEAN PLATELET VOLUME 6.6 FL (7.4-10.4); MONOCYTES % (AUTO) 5.2 % (2-12); NEUTROPHILS # (AUTO) 16.8 X10'3 (1.8-7.7); NEUTROPHILS % (AUTO) 87.5 % (42-75); PLATELET COUNT 336 X10'3 (140-440); RED CELL DISTRIBUTION WIDTH 19.6 % (11.5-14.5); WHITE BLOOD COUNT 19.2 X10'3 (4.5-11.0)
[2019-11-20 22:13] LABS: ALANINE AMINOTRANSFERASE 51 U/L (12-78); ALBUMIN 3.5 G/DL (3.4-5.0); ALBUMIN/GLOBULIN RATIO 0.9 (1.1-1.5); ALKALINE PHOSPHATASE 107 IU/L (46-116); ANION GAP 5 (8-16); ASPARTATE AMINO TRANSFERASE 27 U/L (10-37); BILIRUBIN,TOTAL 0.5 MG/DL (0.1-1.0); BLOOD UREA NITROGEN 16 MG/DL (7-18); BUN/CREATININE RATIO 20.8 (6.6-38.0); CALCIUM 8.6 MG/DL (8.5-10.1); CHLORIDE 98 MMOL/L (99-107); CREATININE 0.77 MG/DL (0.40-0.90); GLUCOSE 195 MG/DL (70-104); POTASSIUM 3.4 MMOL/L (3.5-5.1); SODIUM 137 MMOL/L (135-145); TOTAL CARBON DIOXIDE 33.6 MMOL/L (24-32); TOTAL PROTEIN 7.4 G/DL (6.4-8.2); eGFR 75 ML/MIN
[2019-11-20] MEDS ORDERED: morphine 4 MG/ML inj SYRINge IV ONE (22:20)
[2019-11-20] MEDS ORDERED: ondansetron/PF 4mg/2ml inj IV ONE (22:20)
[2019-11-20] MEDS ORDERED: dexamethasone sod phosphate 10mg/ml inj IV STA (22:27)
[2019-11-20] MEDS ORDERED: LEVO100T78 PO (23:06)
[2019-11-20] MEDS ORDERED: FURO-150 PO (23:06)
[2019-11-20] MEDS ORDERED: PRED20TA PO (23:06)
[2019-11-20] MEDS ORDERED: LORA-660 PO (23:06)
[2019-11-21] MEDS ORDERED: morphine 4 MG/ML inj SYRINge IV ONE (00:30)
[2019-11-21] MEDS ORDERED: ondansetron/PF 4mg/2ml inj IV ONE (00:30)
[2019-11-21] MEDS ORDERED: iohexol 300mg/ml 100ml inj. ONE (00:34)
[2019-11-21] MEDS ORDERED: DOXYCYCLINE 100MG CAPSULE PO STA (02:39)
[2019-11-21] MEDS ORDERED: CefTRIAXone 2gm/D5W 50ml 50 ML IV ONE (02:40)
--- NOTE | 2019-11-21 03:31 | NUR ---
Hospitalist at bedside consulting with pt. Per MD, ED troponin series can be DCd at this time.
[2019-11-21] MEDS ORDERED: mag hydrox/Alum hydrox/simeth 30ml oral suspension PO PRN (04:00)
[2019-11-21] MEDS ORDERED: acetaminophen 325mg tablet PO PRN (04:00)
[2019-11-21] MEDS ORDERED: magnesium hydroxide 30ml (MOM) UD suspension PO PRN (04:00)
[2019-11-21] MEDS ORDERED: ondansetron/PF 4mg/2ml inj IV PRN (04:00)
[2019-11-21] MEDS ORDERED: potassium CL 10mEq/100ml bag 100 ML IV PRN ×2 (04:00)
[2019-11-21] MEDS ORDERED: potassium Cl 20 mEq SR tablet PO PRN (04:00)
[2019-11-21] MEDS ORDERED: metoclopramide 10mg tablet PO PRN (04:10)
[2019-11-21] MEDS ORDERED: CITA20TA28 PO (04:24)
[2019-11-21] MEDS ORDERED: BUPR1FIL25 SL (04:24)
[2019-11-21] MEDS ORDERED: MORP100S12 PO (04:24)
[2019-11-21] MEDS: potassium Cl 20 mEq SR tablet PO PRN ×3 (04:37→13:54)
[2019-11-21] MEDS ORDERED: morphine 10mg/0.5ml (conc. morphine) oral syringe PO PRN (04:45)
--- NOTE | 2019-11-21 04:51 | NUR ---
Pt. states that she does not want to resume taking citalopram. Hospitalist in the ED right now and was made aware of pt's request. N.O. received to DC citalopram and add ativan 0.5mg Q4H PRN for anxiety/agitation.
[2019-11-21] MEDS ORDERED: albuterol 2.5 MG/3 ML nebule NEB PRN (04:55)
--- NOTE | 2019-11-21 07:01 | NUR ---
Patient in room ED 3. I have received report from ARLEEN Chiang and had the opportunity to ask questions and assume patient care.
[2019-11-21] MEDS: LORazepam 0.5 MG tablet PO PRN ×2 (07:07→14:10)
--- NOTE | 2019-11-21 07:30 | NUR ---
Pt arrived to unit stable via gurney by ARLEEN Mcdaniel. Pt ambulated to bed using FWW. Oriented to call light and room. 2RN skin check, physical assessment completed. VS as charted
[2019-11-21] MEDS ORDERED: citalopram 20mg tablet PO SCH (08:00)
[2019-11-21] MEDS ORDERED: predniSONE 20 mg tablet PO SCH (08:00)
[2019-11-21] MEDS ORDERED: cefuroxime axetil 250mg tablet PO SCH (08:00)
[2019-11-21] MEDS: furosemide 20MG tablet PO SCH (08:00)
[2019-11-21] MEDS: montelukast 10mg tablet PO SCH (08:48)
[2019-11-21] MEDS: levoTHYROXINE 100mcg tablet PO SCH (08:49)
[2019-11-21] MEDS: pantoprazole 40mg Tablet.DR PO SCH (08:49)
[2019-11-21] MEDS: potassium chloride 10mEq ER tablet PO SCH (08:50)
[2019-11-21] MEDS: loratadine 10mg tablet PO SCH (08:50)
[2019-11-21] MEDS: K and/or MAG REPLACEMENT MC SCH ×2 (08:50→20:00)
[2019-11-21] MEDS: buprenorphine/naloxone 8MG-2MG SUBlingual film SL SCH ×2 (08:51→20:26)
[2019-11-21] MEDS: albuterol 2.5 MG/3 ML nebule NEB SCH ×2 (09:58→15:29)
[2019-11-21] MEDS: ipratropium 0.5 MG/2.5ML nebule IH SCH ×2 (09:58→15:30)
[2019-11-21] MEDS: budesonide 0.5mg/2ml UD nebule IH SCH ×2 (09:58→20:26)
[2019-11-21] MEDS ORDERED: azithromycin 250mg tablet PO ONE (10:00)
[2019-11-21] MEDS ORDERED: methylPREDNISolone sod succ 125mg/2ml vial IV ONE (10:00)
--- NOTE | 2019-11-21 10:02 | NUR ---
New orders from [facility] for Solumedrol 60mg once now, then q 12hrs after and azithromycin 500mg po daily.
[2019-11-21 11:00] VITALS: BP 125/70
[2019-11-21 15:00] VITALS: BP 113/66
--- NOTE | 2019-11-21 17:10 | NUR ---
PAGER ID: [phone] MESSAGE: [id number]: Lisa Kiser - Pt has become more confused throughout the day. Have to reorient pt to get back to bed. Would you like pt to have sitter? Javan nava [phone]
--- NOTE | 2019-11-21 17:49 | NUR ---
New orders from [facility] for IV morphine 2mg q. 4hrs for breakthrough pain
[2019-11-21 18:00] VITALS: BP 115/69
--- NOTE | 2019-11-21 18:14 | NUR ---
Problems reprioritized. Patient report given, questions answered & plan of care reviewed with ARLEEN Wang.
--- NOTE | 2019-11-21 18:20 | NUR ---
Patient in room PCU 3012. I have received report from Nakia BACON and had the opportunity to ask questions and assume patient care.
--- NOTE | 2019-11-21 19:00 | NUR ---
attempted to draw abg on patient. patient refused. patient pacing back and forth and tearing a tissues. assessed pateient and talked to rn and [employer] professor. if patients status changes ill draw abg.
[2019-11-21] MEDS: nicotine 21mg patch - 24 hr TD SCH (20:00)
[2019-11-21] MEDS: morphine 2 MG/ML inj. syringe IV PRN (20:14)
[2019-11-21] MEDS: methylPREDNISolone sod succ 125mg/2ml vial IV SCH (20:15)
[2019-11-21] MEDS: heparin, porcine 5000 units/ml vial SQ SCH (20:15)
[2019-11-21] MEDS: ipratropium/albuterol 3ml nebule NEB SCH (20:27)
[2019-11-21 22:00] VITALS: BP 147/84
[2019-11-22 02:00] VITALS: BP 141/82
[2019-11-22] MEDS: LORazepam 0.5 MG tablet PO PRN (02:33)
[2019-11-22] MEDS: ipratropium/albuterol 3ml nebule NEB SCH ×2 (02:48→08:01)
[2019-11-22] MEDS: morphine 2 MG/ML inj. syringe IV PRN ×2 (04:44→09:41)
[2019-11-22 05:32] LABS: BASOPHILS # (AUTO) 0.1 X10'3 (0-0.2); BASOPHILS % (AUTO) 0.6 % (0-1); EOSINOPHILS % (AUTO) 0 % (0-6); HEMATOCRIT 38.6 % (35.0-45.0); HEMOGLOBIN 12.2 g/dl (12.0-16.0); LYMPHOCYTES # (AUTO) 1.3 X10'3 (1.1-4.8); MEAN CORPUSCULAR HEMOGLOBIN 27.2 PG (27.0-31.0); MEAN CORPUSCULAR HGB CONC 31.7 g/dL (33.0-36.5); MEAN PLATELET VOLUME 6.8 FL (7.4-10.4); MONOCYTES # (AUTO) 0.6 X10'3 (0-0.9); MONOCYTES % (AUTO) 3.7 % (2-12); NEUTROPHILS # (AUTO) 14.3 X10'3 (1.8-7.7); NEUTROPHILS % (AUTO) 87.7 % (42-75); PLATELET COUNT 307 X10'3 (140-440); RED BLOOD COUNT 4.48 X10'6 (4.20-5.60); RED CELL DISTRIBUTION WIDTH 19.5 % (11.5-14.5); WHITE BLOOD COUNT 16.3 X10'3 (4.5-11.0)
[2019-11-22 05:44] LABS: ALANINE AMINOTRANSFERASE 45 U/L (12-78); ALBUMIN 3.3 G/DL (3.4-5.0); ALBUMIN/GLOBULIN RATIO 0.9 (1.1-1.5); ALKALINE PHOSPHATASE 87 IU/L (46-116); ANION GAP 2 (8-16); ASPARTATE AMINO TRANSFERASE 21 U/L (10-37); BILIRUBIN,TOTAL 0.4 MG/DL (0.1-1.0); BLOOD UREA NITROGEN 20 MG/DL (7-18); BUN/CREATININE RATIO 28.2 (6.6-38.0); CALCIUM 8.8 MG/DL (8.5-10.1); CHLORIDE 102 MMOL/L (99-107); CREATININE 0.71 MG/DL (0.40-0.90); GLUCOSE 150 MG/DL (70-104); POTASSIUM 4.7 MMOL/L (3.5-5.1); SODIUM 137 MMOL/L (135-145); TOTAL CARBON DIOXIDE 33.5 MMOL/L (24-32); TOTAL PROTEIN 6.8 G/DL (6.4-8.2); eGFR 82 ML/MIN
--- NOTE | 2019-11-22 06:26 | NUR ---
Problems reprioritized. Patient report given, questions answered & plan of care reviewed with Azul BACON. Patient was resting comfortably during report and no acute distress was noted.
--- NOTE | 2019-11-22 06:27 | NUR ---
Patient in room PCU 3012A. I have received report from Yaritza BACON and had the opportunity to ask questions and assume patient care.
[2019-11-22 06:30] VITALS: BP 157/92
[2019-11-22 06:38] LABS: ANISOCYTOSIS 2+; PLATELET ESTIMATE NORMAL
[2019-11-22] MEDS: buprenorphine/naloxone 8MG-2MG SUBlingual film SL SCH (07:37)
[2019-11-22] MEDS: methylPREDNISolone sod succ 125mg/2ml vial IV SCH (07:37)
[2019-11-22] MEDS: furosemide 20MG tablet PO SCH (07:37)
[2019-11-22] MEDS: potassium chloride 10mEq ER tablet PO SCH (07:37)
[2019-11-22] MEDS: loratadine 10mg tablet PO SCH (07:37)
[2019-11-22] MEDS: heparin, porcine 5000 units/ml vial SQ SCH (07:37)
[2019-11-22] MEDS: nicotine 21mg patch - 24 hr TD SCH (07:37)
[2019-11-22] MEDS: pantoprazole 40mg Tablet.DR PO SCH (07:37)
[2019-11-22] MEDS: montelukast 10mg tablet PO SCH (07:38)
[2019-11-22] MEDS: levoTHYROXINE 100mcg tablet PO SCH (07:38)
[2019-11-22] MEDS: K and/or MAG REPLACEMENT MC SCH (08:00)
[2019-11-22] MEDS ORDERED: azithromycin 250mg tablet PO SCH (08:00)
[2019-11-22] MEDS: budesonide 0.5mg/2ml UD nebule IH SCH (08:01)
[2019-11-22] MEDS ORDERED: AZI25OT PO (09:43)
--- NOTE | 2019-11-22 11:00 | NUR ---
Per MD, patient stable for discharge home. Discharge packet provided to patient and educated. Also called Hernan to let him know as well that patient has new Zithromax prescription that is to be taken daily. Prescription was faxed to [facility] on [address] per patient request- pharmacy is closed today however patient already took medication today so can resume tomorrow once it is picked up. IV removed with catheter intact and tele monitor removed and returned to it telecom technician. All belongings sent with patient. Patient escorted from hospital in wheelchair accompanied by aide. brought patients home oxygen that was switched over for discharge. Patient driven home via private vehicle
== END 2019-11-22 11:00 | disposition home health service (06) | DRG 192 ==
LOC: ER 21:21 → ED HOLD 11-21 04:17 → PCU 3S 11-21 07:23
PROVIDERS: ADMIT Internal Medicine; ATTEND Internal Medicine
DX: J44.1 Chronic obstructive pulmonary disease with (acute) exacerbation (principal); J20.9 Acute bronchitis, unspecified; J44.0 Chronic obstructive pulmonary disease with (acute) lower respiratory infection; B19.20 Unspecified viral hepatitis C without hepatic coma; D72.829 Elevated white blood cell count, unspecified; E89.0 Postprocedural hypothyroidism; F17.210 Nicotine dependence, cigarettes, uncomplicated; I10 Essential (primary) hypertension; I27.20 Pulmonary hypertension, unspecified; Z66 Do not resuscitate; R73.9 Hyperglycemia, unspecified; G89.29 Other chronic pain; M54.9 Dorsalgia, unspecified; Z86.73 Personal history of transient ischemic attack (TIA), and cerebral infarction without residual deficits; Z90.710 Acquired absence of both cervix and uterus; Z88.2 Allergy status to sulfonamides; Z88.8 Allergy status to other drugs, medicaments and biological substances
CPT/HCPCS: 36415; 71045; 71260; 80053; 83880; 84484; 85008; 85025; 87081; 93005; 93308; 94640; 94760; 97116; 97161; 97530; 99285; G0378; J0696; J1100; J1644; J2270; J2405; J2930; J7512; J7626; Q9967